=== PATIENT | female | born 1970 | race Hispanic/Latino ===

== ENCOUNTER 2017-04-06 22:51 | Emergency (ER) | payer MEDICAID, OTHER ==
[~2017-04-06 22:51] MED LIST: [UNRECOGNIZED DRUG - OTHER]
[2017-04-06 23:47] LABS: APPEARANCE,URINE Clear (CLEAR); BILIRUBIN,URINE Negative (NEGATIVE); COLOR,URINE Yellow (YELLOW); GLUCOSE, URINE (UA) >=1000 mg/dL (NEGATIVE); KETONES,URINE Negative (NEGATIVE); LEUKOCYTE ESTERASE ,URINE Negative (NEGATIVE); NITRATE,URINE Negative (NEGATIVE); OCCULT BLOOD,URINE Negative (NEGATIVE); PH,URINE 5.5 (5.0-8.0); PROTEIN,URINE POS 1+ (NEGATIVE); UROBILINOGEN,URINE 0.2 mg/dL (0.2-1.0)
[2017-04-06 23:49] LABS: HCG,QUAL RESULT NEGATIVE (NEGATIVE)
[2017-04-07 00:22] LABS: BACTERIA,URINE Rare /HPF (None Seen); SQUAMOUS EPITHELIAL CELL,UR 0-2 /LPF (0-2)
== END 2017-04-07 00:36 | disposition home or self-care (01) ==
LOC: EDH 22:51
DX: R55 Syncope and collapse (principal); B34.9 Viral infection, unspecified
CPT/HCPCS: 81001; 81025; 87804; 87880; 93005

== ENCOUNTER 2019-05-14 00:15 | Emergency (ER) | payer BC, OTHER ==
[2019-05-14] MEDS ORDERED: ASPIRIN 325MG EC TAB 325 MG TABLET.DR PO ONE (00:50)
[2019-05-14] MEDS ORDERED: SODIUM CHLORIDE 0.9% 1000ML 1,000 ML IV ONE (00:51)
[2019-05-14 00:53] LABS: BASOPHILS % (AUTO) 0.3 % (0.0-5.0); EOSINOPHILS % (AUTO) 0.6 % (0.0-8.0); HEMATOCRIT 38.2 % (36-48); MEAN CORPUSCULAR HGB CONC 31.9 g/dL (32.0-36.0); MEAN CORPUSCULAR VOLUME 84.5 fL (79-99); MONOCYTES % (AUTO) 8.7 % (3.0-13.0); NEUTROPHILS % (AUTO) 75.2 % (40.0-77.0); PLATELET COUNT (AUTO) 252 K/uL (130-400); RED BLOOD CELL COUNT(AUTO) 4.52 MIL/uL (4.00-5.50); RED CELL DISTRIBUTION WIDTH 13.2 % (11.0-15.5); WHITE BLOOD COUNT (AUTO) 6.2 K/uL (4.8-10.8)
[2019-05-14 00:54] LABS: APPEARANCE,URINE Clear (CLEAR); BILIRUBIN,URINE Negative (NEGATIVE); COLOR,URINE Yellow (YELLOW); GLUCOSE, URINE (UA) Negative (NEGATIVE); HCG,QUAL RESULT NEGATIVE (NEGATIVE); KETONES,URINE 15 mg/dL (NEGATIVE); LEUKOCYTE ESTERASE ,URINE Negative (NEGATIVE); NITRATE,URINE Negative (NEGATIVE); OCCULT BLOOD,URINE Negative (NEGATIVE); PROTEIN,URINE Negative (NEGATIVE)
[2019-05-14 01:00] LABS: CREATININE 0.5 mg/dL (0.5-1.5); POTASSIUM 3.6 mmol/L (3.5-5.1)
[2019-05-14 01:04] LABS: ALBUMIN 3.7 g/dL (3.5-5.0); BILIRUBIN,TOTAL 0.3 mg/dL (0.2-1.0); TOTAL PROTEIN, SERUM 8.4 g/dL (6.0-8.3)
[2019-05-14] MEDS ORDERED: IOHEXOL-350 75 ML VIAL IV ONE (01:34)
== END 2019-05-14 04:04 | disposition home or self-care (01) ==
LOC: EDH 00:15
DX: J09.X2 Influenza due to identified novel influenza A virus with other respiratory manifestations (principal); R07.89 Other chest pain; E11.9 Type 2 diabetes mellitus without complications; I10 Essential (primary) hypertension
CPT/HCPCS: 36415; 71045; 71275; 80053; 81003; 81025; 82550; 84484; 85025; 85378; 87804 ×2; 93005; 99285; J7030; Q9967

== ENCOUNTER 2024-08-29 17:45 | Emergency (ER) | payer BC ==
[~2024-08-29] VITALS: Ht 167.6 cm; Wt 83.0 kg
[2024-08-29] MEDS ORDERED: CEPH500B PO (18:07)
--- NOTE | 2024-08-29 18:08 | ERN ---
General Chief Complaint: Laceration/Avulsion Stated Complaint: LACERATION Time Seen by MD: 17:52 Source: patient History of Present Illness Initial Comments Is a 54-year-old female coming in to be evaluated for right arm laceration. Patient states that while opening the covered she accidentally cut it with the edge of the covered. No fever no chills. Allergies: Coded Allergies: No Known Drug Allergies (Unverified Allergy, Unknown, 01/04/15) Home Meds Reported Medications [Panorama] No Conflict Check 01/04/15 [Panorama] No Conflict Check 01/04/15 Past Medical History Past Medical History: Diabetes-Type II, Hypertension Past Surgical History: None ROS Dictation CONSTITUTIONAL: No chills, no fever, no weakness, no diaphoresis, no malaise. HEAD/FACE: No signs of trauma. EENT: No eye pain, no blurred vision, no tearing, no double vision, no ear pain, no ear discharge, no nose pain, no nasal congestion, no throat pain, no throat swelling, no mouth pain. RESPIRATORY: No cough, no orthopnea, no SOB, no stridor, no wheezing. CARDIOVASCULAR: No chest pain, no edema, no palpitations, no syncope. GASTROINTESTINAL/ABDOMINAL: No abdominal pain, no constipation, no diarrhea, no nausea, no vomiting. GENITOURINARY: No abnormal discharge, no dysuria, no frequent urination, no hematuria. No complaints of pain in the genitals. MUSCULOSKELETAL: No back pain, no gout, no joint pain, no joint swelling, no muscle pain, no muscle stiffness, no neck pain. INTEGUMENTARY: No change in color, no change in hair/nails, no dryness, lesion, no lumps, no rash. NEUROLOGICAL/PSYCH: No anxiety, not depressed, no emotional problem, no headache, no numbness, no pre-existing deficit, no history of seizures, no tremors, no weakness. HEMATOLOGIC/LYMPHATIC: Not anemic, no history of blood clots, no apparent bleeding, no bruising, glands not swollen. All Systems Negative, Except as Noted. Physical Exam Physical Exam Dictation VITAL SIGNS: Reviewed. GENERAL APPEARANCE: Alert, oriented x3, no acute distress, obese. HEAD AND FACE: Non-traumatic. EYES: PERRL, pink conjunctivas, eyelid no trauma, anterior chamber clear. EARS: Pinnas intact and no signs of trauma or erythema. Ear canals clear and no discharge. TMs no erythema. NOSE: No discharge, no bleeding. OROPHARYNX: Mouth normal, teeth no caries, tongue pink. Pharynx clear, no erythema. Tonsils no exudates, no abscesses noted. Mucous membrane moist. NECK: Supple, non-tender, no thyromegaly, no masses, no JVD, no bruits. BREAST: Deferred. CHEST: No tenderness, no crepitus, no paradoxical movement, no retractions. LUNGS: Clear, well-ventilated, symmetric, no rales, no wheezing, no rhonchi, no stridor, good breath sounds bilaterally. HEART: Regular rate, regular rhythm, no murmur, no gallops. VASCULAR: No peripheral edema. ABDOMEN: Soft, positive bowel sounds, nondistended, no guarding, nontender, no rebound, no masses no hepatomegaly, no splenomegaly, no Leone's sign, no hernias. RECTAL: Deferred. GENITAL: Deferred. NEUROLOGICAL: Normal speech, gross motor function intact, gross sensory function intact. MUSCULOSKELETAL: Neck nontender, full range of motion, back nontender, full range of motion. EXTREMITIES: Nontender, full range of motion. SKIN: Color pink, dry, no turgor, no rash, right arm 3 cm laceration, no abrasions, no contusions. LYMPHATICS: Deferred. Results Laboratory and Microbiology Labs Reviewed?: Yes MDM MDM: Differential diagnosis: Forearm laceration, Rationale: Tests considered and ordered secondary to shared decision making include: Previous outside records reviewed: Old ER visits. Risk of complication and/or morbidity or mortality of patient management: None Medications-Per medication reconciliation Patient is a 54-year-old female coming in to be evaluated for right arm laceration. Laceration 3 cm in length linear. Using lidocaine local anesthesia was achieved with 5 mL of lidocaine. Using Ethilon 3-0, 3 sutures simple interrupted were used good approximation. Hemostasis obtained. Patient will be discharged in stable condition with a diagnosis of forearm laceration. ED Course Vital Signs Date Time Temp Pulse Resp B/P (MAP) Pulse Ox O2 Delivery O2 Flow Rate FiO2 08/29/24 17:47 97.5 87 16 157/91 95 Room Air Laceration/Wound Repair Laceration/Wound Repair : Wound Length (cm): 3 Wound Explored: clean Irrigated w/ Saline (ccs): 100 Betadine Prep?: Yes Anesthesia: 1% Lidocaine Volume Anesthetic (ccs): 5 Wound Debrided: minimal Wound Repaired With: sutures Suture Size/Type: 3:0 Number of Sutures: 3 Layer Closure?: Yes DX & DISP Disposition: Discharge Departure Impression: Primary Impression: Forearm laceration Condition: Stable Scripts Cephalexin Monohydrate (Keflex) 500 Mg Cap 1 CAP PO TID for 10 Days, #30 CAP 0 Refills Prov: MICHAELA WALKER MD 08/29/24 Additional Instructions: FOLLOW-UP WITH PRIMARY CARE PROVIDER IN 1 TO 2 DAYS. TAKE MEDICATIONS DIRECTED HERE IN THE EMERGENCY ROOM. OKAY TO CONTINUE HOME MEDICATIONS UNLESS OTHERWISE DISCUSSED DURING YOUR VISIT IN THE EMERGENCY ROOM TODAY. RETURN TO YOUR NEAREST EMERGENCY ROOM IF SYMPTOMS WORSEN OR IF THERE IS NO IMPROVEMENT. CALL 911 IF YOU NEED IMMEDIATE ASSISTANCE. TAKE TYLENOL [id number] NEEDED AND IF NO CONTRAINDICATIONS ARE PRESENT. INCREASE ORAL HYDRATION. A WOUND CULTURE OR URINE CULTURE WAS ORDERED HERE IN THE EMERGENCY ROOM DEPARTMENT PLEASE FOLLOW-UP WITH PRIMARY CARE PROVIDER AND ADVISE THEM TO GET REPEAT PORTS FROM OUR FACILITY. IF YOU HAD ANY KERI WRAP/SPLINTS THAT WERE APPLIED HERE, PLEASE DO NOT REMOVE THEM UNTIL YOU SEE YOUR PRIMARY CARE OR SPECIALTY. Referrals: Referrals: RUBY FREIRE (PCP) Time of Disposition: 18:07 MICHAELA WALKER MD August 29, 2024 18:08
[2024-08-29] MEDS: teTANUS/diphthERIA TOXOID [ADULT] 0.5 ML VIAL IM ONE (18:35)
[2024-08-29 18:40] VITALS: BP 149/88; PULSE 85; RESP 16; TEMP 97.9; O2SAT 96
== END 2024-08-29 18:41 | disposition home or self-care (01) ==
LOC: EDH 17:45
DX: S51.811A Laceration without foreign body of right forearm, initial encounter (principal); E11.9 Type 2 diabetes mellitus without complications; I10 Essential (primary) hypertension; W26.9XXA Contact with unspecified sharp object(s), initial encounter; Y93.89 Activity, other specified; Y92.89 Other specified places as the place of occurrence of the external cause; Y99.8 Other external cause status
CPT/HCPCS: 12002; 12042; 90471; 90714; 99284

== ENCOUNTER 2024-11-25 21:15 | Emergency (ER) | payer BC ==
[~2024-11-25] VITALS: Ht 167.6 cm; Wt 74.4 kg
[~2024-11-25 21:15] MED LIST changes: +CEPH500B PO
[2024-11-25 21:40] VITALS: BP 164/86; PULSE 89; RESP 20; TEMP 98.1; O2SAT 98
[2024-11-25 21:42] LABS: RAPID GROUP A STREP negative (NEGATIVE)
[2024-11-25 21:49] LABS: SARS-CoV-2, RNA, NAAT POSITIVE SARS CoV-2 (NEGATIVE)
[2024-11-25] MEDS ORDERED: BROM118S48 PO (21:55)
[2024-11-25] MEDS ORDERED: IBUP-1492 PO (21:55)
--- NOTE | 2024-11-25 21:55 | ERN ---
ED Note History of Present Illness Stated Complaint: C/O SORE THROAT,FEVER,BODYACHES, CP Chief Complaint: Sore Throat Time Seen by MD: 21:27 Dictation: 54 to year old female presents to ER complaints of sore throat, fever, body aches, cough, nasal congestion for 4 days. Patient denies taking any medication. Patient denies any medical history Allergies: Coded Allergies: No Known Drug Allergies (Unverified Allergy, Unknown, 01/04/15) Home Meds Active Scripts D-Methorphan Hb/P-Epd HCl/Bpm (Bromfed Dm Cough Syrup) 2 Mg-30 Mg-10 Mg/5 Ml Syrup, 10 ML PO Q8H for cough and congestion, #300 ML Prov:KAROLYN BURGESS NP 11/25/24 Ibuprofen (Ibuprofen) 600 Mg Tablet, 600 MG PO Q6H PRN for PAIN, #20 TAB Prov:KAROLYN BURGESS NP 11/25/24 Cephalexin Monohydrate (Keflex) 500 Mg Cap, 1 CAP PO TID for 10 Days, #30 CAP 0 Refills Prov:MICHAELA WALKER MD 08/29/24 Reported Medications [Panorama] No Conflict Check 01/04/15 [Panorama] No Conflict Check 01/04/15 Past Medical History Past Medical History: Diabetes-Type II, Hypertension Surgical History: Unknown Review of System Dictation Constitutional: Positive fever, chills, fatigue Eyes: Negative for injury, pain,redness, and discharge ENT: Negative for injury,pain or swelling positive nasal congestion Cardiovascular: Negative for chest pain, palpitations, and edema Respiratory: Negative for shortness of breath, wheezing, and pleuritic chest pain. Positive cough Abdomen/GI: Negative for abdominal pain, nausea, vomiting, diarrhea, and constipation Back: Negative for injury and pain : Negative for injury, bleeding and discharge MS/Extremity: Negative for injury and deformity Skin: Negative for rash, and discoloration Neuro: Negative for headache, weakness, numbness, tingling, and seizure Psych: Negative for suicide ideation, homicidal ideation, and hallucinations Allergy/Immunology: Negative for hives, rash, and allergies Initial Vital Sign VS Vital Signs Date Time Temp Pulse Resp B/P (MAP) Pulse Ox O2 Delivery O2 Flow Rate FiO2 11/25/24 21:20 98.1 89 20 164/86 97 Room Air 11/25/24 21:40 0 21 Physical Exam Dictation General: awake, alert, NAD Head/Face: Normocephalic, atraumatic Eyes: PERRL, EOMI, vision at baseline ENT: oral cavity clear, TMs clear, no signs of infection. Positive nasal mary ellen estion Neck: Trachea midline, supple, no nuchal rigidity Cardiovascular: RRR, normal S1/S2, No MRGs, no JVD Respiratory: CTAB, no respiratory distress, No rales or wheezes Abdomen: Soft, non-tender, non-distended, normal bowel sounds, no guarding or rebound. Skin: Warm, dry, normal turgor, no rash MS/Extremity: Pulses equal, no cyanosis, neurovascular intact, FROM Neuro: COAx4, GCS 15, strength 5/5, CN 2-12 intact, normal cerebellar exam, normal gait, Psych: Normal behavior, mood, and affect normal Results (Laboratory/Radiology) Laboratory/Radiology Laboratory Tests Test 11/25/24 21:24 SARS-CoV-2, RNA, NAAT POSITIVE SARS CoV-2 Group A Streptococcus Rapid negative (NEGATIVE) ED Course ED Course Orders Procedure Category Date Status Time Covid Rna Naat LAB 11/25/24 In Process 21:18 Influenza Type A & B, LAB 11/25/24 In Process Rapid 21:18 Rapid (Group A Strep) LAB 11/25/24 In Process 21:18 12 Lead Ekg Tracing- EKG 11/25/24 Logged Technical 21:18 Vital Signs Date Time Temp Pulse Resp B/P (MAP) Pulse Ox O2 Delivery O2 Flow Rate FiO2 11/25/24 21:40 98.1 89 20 164/86 98 Room Air* 0 21 11/25/24 21:20 98.1 89 20 164/86 97 Room Air Medical Decision Making MDM A 14 points ROS done, pertinent positive and negatives described in HPI; all others negative. TIME WAS SPENT ON COUNSELING, REVIEWING MEDICAL RECORDS, REVIEWING THE ENTIRE VISIT DOCUMENTATION (INCLUDING ANY COMMENTS THAT MAY HAVE BEEN GIVEN BY THE PATIENT i.e. THE REVIEW OF SYSTEMS) AND COORDINATION OF CARE. COVID positive on lab results. Patient will be discharged with viral illness. Patient VSS, NAD, nontoxic, stable for discharge. Pt given discharge instructions in layman terms and understood, all questions answered. Pt will follow up with PCP and return to the ER if worse. DX & DISP Disposition: Discharge Departure Impression: Primary Impression: Viral respiratory illness Additional Impressions: Exposure to COVID-19 virus, COVID, Fever Condition: Stable Scripts D-Methorphan Hb/P-Epd HCl/Bpm (Bromfed Dm Cough Syrup) 2 Mg-30 Mg-10 Mg/5 Ml Syrup 10 ML PO Q8H for cough and congestion, #300 ML Prov: KAROLYN BURGESS NP 11/25/24 Ibuprofen (Ibuprofen) 600 Mg Tablet 600 MG PO Q6H PRN for PAIN, #20 TAB Prov: KAROLYN BURGESS NP 11/25/24 Additional Instructions: FOLLOW-UP WITH YOUR PCP IN 24-72 HOURS AND IN THE EVENT IF SYMPTOMS WORSEN OR AN EMERGENCY OVERNIGHT REPORT TO THE ED IMMEDIATELY Referrals: RUBY FREIRE (PCP) KAROLYN BURGESS NP Nov 25, 2024 21:55
[2024-11-25 22:15] LABS: INFLUENZA TYPE A Negative For Type A (NEGATIVE); INFLUENZA TYPE B Negative For Type B (NEGATIVE)
--- NOTE | 2024-11-26 08:52 | EKG ---
[facility] Test Date: 2024-11-25 Test Time: 21:19:12 Pat Name: GAIL SCHWARTZ Department: ED Room: Gender: F [employer] Potter: 08 : 1970 Requested By: VENKATESH ARELLANO Order Number: [id number] Reading MD: Todd De La Rosa Measurements Intervals [place] Rate: 91 P: 55 ND: 187 QRS: 1 QRSD: 90 T: 48 QT: 348 QTc: 427 Interpretive Statements Sinus rhythm Probable left atrial enlargement Low voltage, precordial leads Compared to ECG 05/14/2019 00:37:37 Low QRS voltage now present Sinus tachycardia no longer present Electronically Signed On 11-26-2024 19:44:58 CDT by Todd De La Rosa Please click the below link to view image of tracing.
== END 2024-11-25 22:20 | disposition home or self-care (01) ==
LOC: EDH 21:15
DX: U07.1 COVID-19 (principal); J98.8 Other specified respiratory disorders; B97.89 Other viral agents as the cause of diseases classified elsewhere; E11.9 Type 2 diabetes mellitus without complications; I10 Essential (primary) hypertension
CPT/HCPCS: 87635; 87804; 87880; 93005; 99284